=== PATIENT | female | born 1940 | race Hispanic/Latino ===

== ENCOUNTER 2017-11-17 08:39 | Outpatient (CLI) | payer MEDICARE ==
--- NOTE | 2017-11-17 10:52 | Cat Scan Report ---
CT chest with contrast: Non-Hodgkin's lymphoma and left mastectomy. Following IV contrast administration transverse images are obtained through the chest. Coronal and sagittal 2-D reformatted images are included. Comparison made to palpable exam in September 2016. No axillary, hilar, and no mediastinal adenopathy identified. Normal heart size. No obvious pulmonary vascular filling defects. Apical pleural scarring present with left pulmonary volume loss consistent with history of left upper lobectomy. No pulmonary nodules nor infiltrates. Impression: No interval change.
== END 2017-11-17 08:40 | disposition home or self-care (01) ==
LOC: SPVIMAG 08:39
PROVIDERS: ATTEND Internal Medicine Hematology & Oncology
DX: C85.93 Non-Hodgkin lymphoma, unspecified, intra-abdominal lymph nodes (principal); J98.4 Other disorders of lung; Z90.12 Acquired absence of left breast and nipple
CPT/HCPCS: 71260

== ENCOUNTER 2018-05-06 11:09 | Outpatient (CLI) | payer MEDICARE ==
--- NOTE | 2018-05-06 13:38 | XRay Report ---
Thoracic spine: Pain. AP and lateral views demonstrates diffuse spondylosis and mild increased kyphosis. No subluxation. Mild wedging is noted throughout the mid thoracic bodies predominantly from T6-T12. The bones appear generally decreased in overall mineralization. The interspaces appear diffusely narrowed but relatively uniform. There is no soft tissue thickening appreciated. Impressions: The findings are most consistent with diffuse degenerative changes involving bone and discs. No focal lesion and no suspicion of an acute change. Lumbar spine series: Pain. The bones appear generally decreased mineralization. There is a grade 1 anterior L4 subluxation on L5. There is mild spondylosis from L1-L3 with mild anterior wedging of L1. The interspaces appear generally preserved. Mild degenerative narrowing identified bilaterally involving the lower 3 apophyseal joints. Impressions: Multilevel degenerative changes with L4 subluxation.
== END 2018-05-06 11:10 | disposition home or self-care (01) ==
LOC: SPVIMAG 11:09
PROVIDERS: ATTEND Nurse Practitioner
DX: M47.896 Other spondylosis, lumbar region (principal); C85.93 Non-Hodgkin lymphoma, unspecified, intra-abdominal lymph nodes; D05.12 Intraductal carcinoma in situ of left breast; D75.1 Secondary polycythemia
CPT/HCPCS: 72072; 72110

== ENCOUNTER 2018-06-15 10:31 | Outpatient (CLI) | payer MEDICARE ==
[2018-06-15 11:04] LABS: Blood Urea Nitrogen 10 mg/dL (7-17)
--- NOTE | 2018-06-15 16:11 | Cat Scan Report ---
FINAL REPORT EXAM: CT ABDOMEN PELVIS W CON HISTORY: MPM HODGKIN LYMPHOMA, SECONDARY POLYCYTHEMIA TECHNIQUE: CT of Chest, Abdomen, and Pelvis with IV contrast. Coronal sagittal reconstructed imaging provided. PRIORS: None currently available. FINDINGS: CHEST: Volume loss the left lung noted. Mild scarring and discoid subsegmental atelectasis in both lungs. No pneumothorax. No distinct consolidation. No effusion. Rwjf-je-zxiwvnco aortic atherosclerotic disease. No aneurysm. No dissection. Major branch arteries are intact. Main pulmonary artery is unremarkable. No pulmonary embolus. Mild cardiomegaly. Coronary artery disease. No pericardial effusion. Axillary regions are unremarkable. Enlarged homogeneous thyroid gland is unremarkable. No distinct nodules. No hilar mediastinal mass or adenopathy. Images of the esophagus are unremarkable. ABDOMEN: Kidneys: Simple appearing cyst in the upper right cortex measures 6.6 cm. Symmetrical cortical enhancement both kidneys. No hydronephrosis. No suspicious lesions. Liver, stomach, spleen, pancreas, and adrenals are unremarkable. IVC is intact. Srmv-ep-ehszzcdz aortic atherosclerotic disease. No aneurysm or dissection. No periaortic or retroperitoneal mass or adenopathy. Gkds-le-dvmxtlrt stool throughout the colon. Sigmoid diverticulosis. No wall thickening or inflammatory changes. Terminal ileum is unremarkable. Appendix is normal. Small bowel loops are unremarkable. No obstruction. No free fluid. No free air. Mild stranding of the mesentery noted. No enlarged lymph nodes. PELVIS: Uterus is not clearly identified and may be surgically removed, small, or atrophic.. Images of the bladder grossly unremarkable. No pelvic mass or adenopathy. Fat containing right inguinal hernia without strangulation. Left inguinal regions unremarkable. Bones: No suspicious osseous lesions on this limited examination of the skeleton. Metastatic disease better evaluated with bone scan. Degenerative changes are in the spine. Chronic T9 mild compression fracture deformity. IMPRESSION: Mild cardiomegaly. Simple appearing right renal cyst. Mild mesenteric stranding. Differential includes normal variation, mild mesenteric panniculitis, lymphedema, enteritis, hemorrhage, infection, and lymphoma. Otherwise, no acute findings. No significant adenopathy.
== END 2018-06-15 10:32 | disposition home or self-care (01) ==
LOC: CT 10:31
PROVIDERS: ATTEND Internal Medicine Hematology & Oncology
DX: I51.7 Cardiomegaly (principal); N28.1 Cyst of kidney, acquired; M47.894 Other spondylosis, thoracic region; I25.10 Atherosclerotic heart disease of native coronary artery without angina pectoris
CPT/HCPCS: 36415; 71260; 74177; 82565; 84520; Q9967

== ENCOUNTER 2019-06-30 10:38 | Outpatient (CLI) | payer MEDICARE ==
--- NOTE | 2019-06-30 15:44 | Mammography Report ---
RIGHT DIGITAL SCREENING MAMMOGRAM WITH CAD INDICATION: Routine screening mammography. TECHNIQUE: Digital right 2D mammography was obtained in the craniocaudal and mediolateral oblique pr ojections. This examination was interpreted with the benefit of Computer-Aided Detection analysis. COMPARISON: 06/23/2015 FINDINGS: Breast Density: The breast is mostly fatty. No mass, architectural distortion or suspicious calcifications. The nipple is retracted as seen on th e previously mammogram. IMPRESSION:No mammographic evidence of malignancy. Chronic benign nipple retraction. BI-RADS Category 2: Benign. No mammographic evidence of malignancy. Recommend routine screening ma mmography in one year. A "normal" or negative report should not discourage follow up or biopsy of a clinically significant f inding. A written summary of these findings will be mailed to the patient. The patient will be entered into a mammography reporting system which will generate a reminder letter for the patient's next appointmen t at the appropriate interval. The [employer] recommends yearly mammograms starting at age 40 and continuing as l fl[place] as a woman is in good health. Breast MRI is recommended for women with an approximate 20-25% or greater lifetime risk of breast cancer, including women with a strong family history of breast or ova da cancer or who have been treated for Hodgkin's disease. Signer Name: Praveen Aranda MD Signed: 06/30/2019 3:39 PM Workstation Name: [id number]
== END 2019-06-30 10:39 | disposition home or self-care (01) ==
LOC: SPVWC 10:38
PROVIDERS: ATTEND Internal Medicine Hematology & Oncology
DX: Z12.31 Encounter for screening mammogram for malignant neoplasm of breast (principal)

== ENCOUNTER 2019-11-16 12:49 | Emergency (ER) | payer MEDICARE ==
--- NOTE | 2019-11-16 16:15 | Emergency Department Report ---
ED General Adult HPI - General Chief complaint: Abdominal Pain Stated complaint: COLOSTOMY BAG Time Seen by Provider: 11/16/19 15:40 Source: EMS Mode of arrival: Stretcher Limitations: No Limitations - History of Present Illness Initial comments: Patient is a 79-year-old female who is 5 days status post a diverting loop colostomy being done secondary to a rectal mass. Patient states she left the hospital yesterday but she is running out of colostomy supplies and also the nursing service that goes to come and help her with dressing changes over colostomy had not shown up. Patient states that she is continued to heal from surgery and has no additional pain at this time. She denies nausea vomiting. Patient states has been no fevers or chills. - Related Data Home Medications Medication Instructions Recorded Confirmed Last Taken Aspirin [Aspirin BABY CHEW TAB] 81 mg PO QDAY 11/08/19 11/08/19 Unknown Cholecalciferol (Vitamin D3) 3,000 unit PO DAILY 11/08/19 11/08/19 Unknown [Vitamin D3 3,000 unit] Fluticasone/Vilanterol [Breo 1 inh IN DAILY 11/08/19 11/08/19 Unknown Ellipta 100-25 Mcg INH] Metoprolol [Lopressor TAB] 25 mg PO BID 11/08/19 11/08/19 Unknown amLODIPine 10 mg PO DAILY 11/08/19 11/08/19 Unknown Previous Rx's Medication Instructions Recorded Last Taken Type HYDROcodone/APAP 5-325 [Shoshone 1 each PO BID PRN #20 tablet 11/15/19 Unknown Rx 5-325 mg TAB] Pantoprazole [Protonix] 40 mg PO QDAY #30 tablet 11/15/19 Unknown Rx Allergies Allergy/AdvReac Type Severity Reaction Status Date / Time No Known Allergies Allergy Unverified 11/08/19 07:45 ED Review of Systems ROS: Stated complaint: COLOSTOMY BAG Other details as noted in HPI Comment: All other systems reviewed and negative ED Past Medical Hx - Past Medical History Hx Hypertension: Yes Hx Heart Attack/AMI: No Hx Diabetes: Yes Hx Liver Disease: No Hx Renal Disease: Yes (Bladder CA. Currently receiving treatment.) Hx Sickle Cell Disease: No Hx Seizures: No Hx Asthma: No Hx COPD: Yes Additional medical history: Bladder CA. Lung CA - Surgical History Hx Pacemaker: No Hx Internal Defibrillator: No Hx Cholecystectomy: Yes Hx Appendectomy: Yes Additional Surgical History: mastectomy - Social History Smoking Status: Former Smoker - Medications Home Medications: Home Medications Medication Instructions Recorded Confirmed Last Taken Type Aspirin [Aspirin BABY CHEW TAB] 81 mg PO QDAY 11/08/19 11/08/19 Unknown History Cholecalciferol (Vitamin D3) 3,000 unit PO DAILY 11/08/19 11/08/19 Unknown History [Vitamin D3 3,000 unit] Fluticasone/Vilanterol [Breo 1 inh IN DAILY 11/08/19 11/08/19 Unknown History Ellipta 100-25 Mcg INH] Metoprolol [Lopressor TAB] 25 mg PO BID 11/08/19 11/08/19 Unknown History amLODIPine 10 mg PO DAILY 11/08/19 11/08/19 Unknown History HYDROcodone/APAP 5-325 [Shoshone 1 each PO BID PRN #20 tablet 11/15/19 Unknown Rx 5-325 mg TAB] Pantoprazole [Protonix] 40 mg PO QDAY #30 tablet 11/15/19 Unknown Rx ED Physical Exam - General Limitations: No Limitations General appearance: alert, in no apparent distress - Head Head exam: Present: atraumatic, normocephalic - Eye Eye exam: Present: normal appearance - Respiratory Respiratory exam: Absent: respiratory distress - GI/Abdominal GI/Abdominal exam: Present: tenderness, other (patient with a ostomy in the left lower quadrant with an anchoring to the ostomy site. Patient has midline scar that has intact brigid. The dressing is clean and dry.). Absent: guarding, rebound, rigid ED Medical Decision Making - Medical Decision Making Patient had a rigid piece of tubing To the ostomy site. There was a delay in placing her tubing into we could find out exactly how to dress the wound. I spoke with Dr. Simpson the patient's surgeon A stated that this was an anchoring tubing to keep the bowels in place internally. This could be placed in the colostomy bag. Our social media marketing manager was able to see the patient and confirmed that her home health services will be at her home in 2 days. Patient was given some additional colostomy bags and was given education on how to dress the ostomy. Patient has no actual medical emergency at this time and has been screened out to continue with any resources to follow up with her surgeon as scheduled. Critical care attestation.: If time is entered above; I have spent that time in minutes in the direct care of this critically ill patient, excluding procedure time. ED Disposition Clinical Impression: Colostomy care Disposition: MED SCREENING EXAM-LEFT Is pt being admited?: No Does the pt Need Aspirin: No Condition: Stable Referrals: NANCY SIMPSON MD [Staff Physician] - as needed (Please follow up as scheduled) Time of Disposition: 16:15
[2019-11-16 16:41] VITALS: BP 148/62
== END 2019-11-16 17:00 | disposition left against medical advice (07) ==
LOC: ED 12:49
DX: K94.00 Colostomy complication, unspecified (principal); I10 Essential (primary) hypertension; E11.9 Type 2 diabetes mellitus without complications; J44.9 Chronic obstructive pulmonary disease, unspecified; Z98.890 Other specified postprocedural states; Z90.49 Acquired absence of other specified parts of digestive tract; Z87.891 Personal history of nicotine dependence; Z79.899 Other long term (current) drug therapy